=== PATIENT | female | born 1965 | race Caucasian/White ===

== ENCOUNTER 2020-09-21 14:24 | Outpatient (AMBR) | payer OTHER, SELFPAY ==
--- NOTE | 2020-09-21 15:05 | PT.OIERPT ---
PT OP Initial Eval Patient Information Visit Reasons: Cervicalgia Medical Diagnosis: M54.2 Treatment Dx #1: Neck Pain Start of Care: 09/21/20 Initial Assessment Subjective Pt is a 55 y/o female c/o chronic neck pain (06/11) started several years ago. Pt stated that recent imaging found a couple disc collapse and a bone spur at the C5-C6 region. Pt notice intermittent pain down the left shoulder blade but nothing down the hands or arm. Pt has limitation with work duties, chores, self care, driving, gym activities, and performing normal ADLs. Objective C/S AROM: all motions are WFL except right rotation and extension towards end range Scapula MMTs: grossly 3/5 BUE AROM: all motions are WNL Bilateral UE MMTs: grossly 3+/5 Palpation: TTP left upper trape; bilateral suboccipitals L>R; hypomobile C3-C6 left facet DNF endurance test: 1 sec Assessment Pt demonstrate neck pain and c/s mobility deficits leading to decline function and difficulty with ADLs. Pt will attempt physical therapy if pain persist Pt will be refer back to PCP for further consultation. 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 1) Increase C/S AROM WNL in 6 [address] to be able to drive with less limitation 2) Decrease neck pain to 2/10 in 6 wks to be able to perform work duties 3) Decrease suboccipital muscles tension in 6 wks to decrease headache 4) Increase bilateral scapula MMTs grossly to 4-/5 in 6 wks to be able to perform chores 5) Increase bilateral UE MMTs grossly to 4-/5 in 6 wks to be able to perform lifting activities 6) Indep with HEP Treatment Plan 1) Manual Therapy 2) Therapeutic Activities 3) Therapeutic Exercises 4) Modalities (ice, heat) Frequency and Duration 2 x wk for 6 wks Certification Dates: 09/21/20 to 12/22/20 Office Procedures PT Procedures PT Date of Service: 09/21/20 OP PT Eval Mod Complex 30 minutes: Yes
== END 2020-10-01 23:59 | disposition home or self-care (01) ==
PROVIDERS: PCP Family Medicine; Referring Provider Family Medicine; Visit Provider Family Medicine
DX: M54.2 Cervicalgia (principal); G89.29 Other chronic pain; M25.512 Pain in left shoulder
CPT/HCPCS: 97162

== ENCOUNTER 2020-10-16 14:58 | Outpatient (AMBR) | payer OTHER, SELFPAY ==
--- NOTE | 2020-10-02 16:15 | PTNOTE_ITS ---
PT Outpatient Daily Note Date of Service: 10/02/20 OP Daily Note Visit Reasons: Cervicalgia Outpatient Physical Therapy Treatment Date: 10/02/20 Subjective: Pt mention that her headache are getting worse. Pt feels like her right neck is more tight today Objective: Please see flow chart for list of ther ex performed Assessment: noted right suboccipitals more tight today and decrease after STM. Pt very sensitive and cue to relax throughout STM Plan: Continue with PT Length of Time (minutes) of Treatment: 30 Minutes Office Procedures PT Procedures PT Date of Service: 10/02/20 Therapeutic Exercise 15 minutes: Yes Manual Emergency Medicine Specialist 15 minutes: Yes
--- NOTE | 2020-10-05 15:06 | PT.ODAYNRPT ---
PT Outpatient Daily Note Date of Service: 10/05/20 OP Daily Note Visit Reasons: Cervicalgia Outpatient Physical Therapy Treatment Date: 10/05/20 Subjective: Pt had more headache after last session and relate to the STM. Pt does not want the STM today. Pt feels that heat and stretches is effective in helping her head move better Objective: PLease see flow chart for list of ther ex performed Assessment: no STM today per Pt's request due to increase Lucia after last session. Pt performed all exercises today but difficulty with suboccipitals due to increase tension after 2nd rep Plan: Continue with PT Length of Time (minutes) of Treatment: 30 Minutes Office Procedures PT Procedures PT Date of Service: 10/02/20 Therapeutic Exercise 15 minutes: Yes Manual Property Utilization Officer 15 minutes: Yes PT Procedures PT Date of Service: 10/05/20 Therapeutic Exercise 30 minutes: Yes
--- NOTE | 2020-10-10 15:59 | PT.ODAYNRPT ---
PT Outpatient Daily Note Date of Service: 10/10/20 OP Daily Note Visit Reasons: Cervicalgia Outpatient Physical Therapy Treatment Date: 10/10/20 Subjective: Pt mention that her neck is about the same. Pt is glad no manual therapy is being performed due to increases Lucia afterward. Pt prefers light stretches and ROM exercises + heat Objective: Please see flow chart for list of ther ex performed Assessment: tolerate exercises with minimal pain Plan: Continue with PT Length of Time (minutes) of Treatment: 30 Minutes Office Procedures PT Procedures PT Date of Service: 10/02/20 Therapeutic Exercise 15 minutes: Yes Manual Institutional Research Coordinator 15 minutes: Yes PT Procedures PT Date of Service: 10/05/20 Therapeutic Exercise 30 minutes: Yes PT Procedures PT Date of Service: 10/05/20 Therapeutic Exercise 30 minutes: Yes PT Procedures PT Date of Service: 10/10/20 Therapeutic Exercise 30 minutes: Yes
--- NOTE | 2020-10-16 15:56 | PT.ODS1RPT ---
PT OP Progress/Discharge Note Date of Service: 10/16/20 Progress Note/DC Note Progress Note/Discharge Note: DC Note Patient Information Visit Reasons: Cervicalgia Medical Diagnosis: M54.2 Treatment Dx #1: Neck Pain Service Continue Service or Discharge: Discharge Discharge Date: 10/16/20 Status Subjective: Pt mention that she's been able to turn her head more with less stiffness, however, she continues to have daily headache. At this time Pt will like to stop therapy due to conflict with work as well as minimal difference since starting physical therapy. Pt still has limitation with work duties, driving, gym activities, self care, and performing normal ADLs. Pt will follow up with provider after physical therapy. Objective: C/S AROM: all motions are WFL Scapula MMTs: grossly 3+/5 BUE AROM: all motions are WNL BUE MMTs: grossly 3+/5 DNF Endurance Test: 5 sec Assessment: Pt demonstrate functional c/s mobility and UE strength, however, continues to report of lingering neck pain with daily headache. Pt will no longer benefit from physical therapy due to plateau towards goals. Unable to perform manual therapy in most of patient's session due to increase headache after procedure leading to patient only tolerating light stretches and exercises. Pt was given HEP on her last session and educated to continue exercises to maintain overall mobility. Pt performed all exercises safely, thank you for your referrals. Plan: D/C home with HEP and follow up with provider Office Procedures PT Procedures PT Date of Service: 10/02/20 Therapeutic Exercise 15 minutes: Yes Manual Air Pollution Auditor 15 minutes: Yes PT Procedures PT Date of Service: 10/05/20 Therapeutic Exercise 30 minutes: Yes PT Procedures PT Date of Service: 10/16/20 Therapeutic Exercise 30 minutes: Yes PT Procedures PT Date of Service: 10/05/20 Therapeutic Exercise 30 minutes: Yes PT Procedures PT Date of Service: 10/10/20 Therapeutic Exercise 30 minutes: Yes
== END 2020-11-01 23:59 | disposition home or self-care (01) ==
PROVIDERS: PCP Family Medicine; Referring Provider Family Medicine; Visit Provider Family Medicine
DX: M54.2 Cervicalgia (principal); G89.29 Other chronic pain
CPT/HCPCS: 97110; 97140

== ENCOUNTER → 2025-09-22 | Outpatient (CLI) | payer SELFPAY | END | disposition home or self-care (01) | LOC: CDIM 15:35 | PROVIDERS: Referring Provider Nurse Practitioner Family; Visit Provider Nurse Practitioner Family | DX: Z12.31 Encounter for screening mammogram for malignant neoplasm of breast (principal) | CPT/HCPCS: 77063; 77067 ==